=== PATIENT | female | born 1950 | race Caucasian/White ===

== ENCOUNTER → 2017-08-29 09:17 | Outpatient (CLI) | payer MEDICARE, BC, SELFPAY | PROVIDERS: PCP Nurse Practitioner Family; Visit Provider Internal Medicine Endocrinology, Diabetes & Metabolism | DX: E27.8 Other specified disorders of adrenal gland (principal) | CPT/HCPCS: 36415; 82533 ==

== ENCOUNTER → 2019-09-27 13:37 | Outpatient (CLI) | payer MEDICARE, BC, SELFPAY ==
[2019-09-27 14:58] LABS: Basophils % 0.2 % (0.1-2.0); Eosinophils % 0.2 % (0.1-12.0); Hematocrit 34.2 % (37.0-47.0); Hemoglobin 11.9 g/dL (12.2-16.2); Lymphocytes # 0.8 K/mm3 (0.7-4.5); Mean Corpuscular Hemoglobin 28.8 pg (27.0-31.2); Mean Corpuscular Volume 82.4 fl (81-99); Mean Platelet Volume 8.6 fl (7.4-10.4); Monocytes # 0.4 K/mm3 (0.1-1.0); Monocytes % 5.9 % (1.7-9.3); Neutrophils # 5.8 K/mm3 (1.8-7.8); Neutrophils % 82.7 % (37.0-80.0); Platelet Count 235 K/mm3 (142-424); Red Blood Count 4.15 M/mm3 (4.20-5.40); Red Cell Distribution Width 13.6 % (11.5-17.5)
[2019-09-27 16:05] LABS: Chloride 95 mmol/L (98-107)
[2019-09-27 16:06] LABS: Sodium 132 mmol/L (136-145)
[2019-09-27 16:08] LABS: Alanine Aminotransferase 46 U/L (12-78); Aspartate Amino Transferase 63 U/L (14-36); Blood Urea Nitrogen 32 mg/dl (7-17); Estimated Glomerular Filt Rate 62 ml/min (>60); GFR (African American) 76 ML/MIN (>60)
[2019-09-27 16:09] LABS: Albumin Level 3.8 g/dl (3.5-5.0); Albumin/Globulin Ratio 1.3 (1.1-1.8); Alkaline Phosphatase 61 U/L (38-126); Anion Gap 15.9 mEq/L (5-15); Bilirubin,Total 0.7 mg/dl (0.2-1.3); Calcium 8.6 mg/dl (8.4-10.2); Carbon Dioxide 24 mmol/L (22.0-30.0); Glucose 147 mg/dl (74-100); Total Protein,Serum 6.8 g/dl (6.3-8.2)
[2019-09-27 16:12] LABS: Potassium 2.9 mmoL/L (3.5-5.1)
== END ==
PROVIDERS: Visit Provider Internal Medicine Adolescent Medicine
DX: J18.0 Bronchopneumonia, unspecified organism (principal); R09.02 Hypoxemia
CPT/HCPCS: 80053; 83735; 85025

== ENCOUNTER → 2021-03-06 19:33 | Outpatient (CLI) | payer MEDICARE, BC, SELFPAY ==
[2021-03-06 20:03] LABS: Basophils # 0.1 K/mm3 (0-0.2); Basophils % 0.8 % (0.1-2.0); Eosinophils # 0.2 K/mm3 (0.0-0.4); Eosinophils % 3.6 % (0.1-12.0); Hematocrit 37.1 % (37.0-47.0); Hemoglobin 12.8 g/dL (12.2-16.2); Lymphocytes # 1.9 K/mm3 (0.7-4.5); Mean Corpuscular HGB Conc 34.3 g/dL (31.8-35.4); Mean Corpuscular Hemoglobin 29.7 pg (27.0-31.2); Mean Corpuscular Volume 86.5 fl (81-99); Mean Platelet Volume 9.8 fl (7.4-10.4); Monocytes # 0.4 K/mm3 (0.1-1.0); Monocytes % 6.7 % (1.7-9.3); Neutrophils # 3.8 K/mm3 (1.8-7.8); Neutrophils % 58.9 % (37.0-80.0); Platelet Count 274 K/mm3 (142-424); Red Cell Distribution Width 13.8 % (11.5-17.5); White Blood Count 6.4 K/mm3 (4.8-10.8)
[2021-03-06 20:35] LABS: Alanine Aminotransferase 34 U/L (12-78); Albumin Level 4.5 g/dl (3.5-5.0); Albumin/Globulin Ratio 1.7 (1.1-1.8); Alkaline Phosphatase 90 U/L (38-126); Anion Gap 14.2 mEq/L (5-15); Aspartate Amino Transferase 33 U/L (14-36); Bilirubin,Total 0.3 mg/dl (0.2-1.3); Blood Urea Nitrogen 17 mg/dl (7-17); Calcium 9.9 mg/dl (8.4-10.2); Carbon Dioxide 27 mmol/L (22.0-30.0); Chloride 100 mmol/L (98-107); Chol/HDL Ratio 4.2 (1-3.5); Cholesterol 206 mg/dl (140-200); Estimated Glomerular Filt Rate 83 ml/min (>60); GFR (African American) 101 ML/MIN (>60); Globulin 2.7 g/dL (1.3-3.2); Glucose 149 mg/dl (74-100); HDL Cholesterol 49 mg/dl (40-60); Potassium 4.2 mmoL/L (3.5-5.1); Sodium 137 mmol/L (136-145); Total Protein,Serum 7.2 g/dl (6.3-8.2); Triglycerides 199 mg/dl (30-150); VLDL Cholesterol 40 mg/dL (0-40)
[2021-03-06 20:46] LABS: Direct LDL Cholesterol 114.17 mg/dL (100-129)
[2021-03-06 20:52] LABS: 25-OH Vitamin D, Total 36.5 ng/mL (30-100)
[2021-03-06 21:49] LABS: Hemoglobin A1C 6.6 % (4.0-6.0)
== END ==
PROVIDERS: Visit Provider Internal Medicine Adolescent Medicine
DX: Z00.00 Encounter for general adult medical examination without abnormal findings (principal); U07.1 COVID-19; E55.9 Vitamin D deficiency, unspecified; Z79.899 Other long term (current) drug therapy; E27.8 Other specified disorders of adrenal gland
CPT/HCPCS: 80053; 80061; 82306; 83036; 85025

== ENCOUNTER → 2021-07-05 10:15 | Outpatient (CLI) | payer MEDICARE, BC, SELFPAY ==
[2021-07-05 14:30] LABS: Alanine Aminotransferase 41 U/L (12-78); Albumin Level 4.3 g/dl (3.5-5.0); Albumin/Globulin Ratio 1.6 (1.1-1.8); Alkaline Phosphatase 83 U/L (38-126); Anion Gap 15.2 mEq/L (5-15); Aspartate Amino Transferase 36 U/L (14-36); Bilirubin,Total 0.6 mg/dl (0.2-1.3); Blood Urea Nitrogen 21 mg/dl (7-17); Calcium 9.2 mg/dl (8.4-10.2); Carbon Dioxide 25 mmol/L (22.0-30.0); Chloride 101 mmol/L (98-107); Estimated Glomerular Filt Rate 99 ml/min (>60); GFR (African American) 120 ML/MIN (>60); Globulin 2.7 g/dL (1.3-3.2); Glucose 179 mg/dl (74-100); Potassium 4.2 mmoL/L (3.5-5.1); Sodium 137 mmol/L (136-145)
[2021-07-07 08:15] LABS: Testosterone,Total 22 ng/dL (3-67)
== END ==
PROVIDERS: Visit Provider Internal Medicine Adolescent Medicine
DX: L68.0 Hirsutism (principal)
CPT/HCPCS: 36415; 80053; 82533; 84403

== ENCOUNTER → 2021-10-25 06:57 | Outpatient (CLI) | payer MEDICARE, BC, SELFPAY ==
[2021-10-25 17:21] LABS: Basophils # 0.1 K/mm3 (0-0.2); Basophils % 1.2 % (0.1-2.0); Eosinophils # 0.2 K/mm3 (0.0-0.4); Eosinophils % 3.7 % (0.1-12.0); Hematocrit 37.7 % (37.0-47.0); Hemoglobin 12.2 g/dL (12.2-16.2); Lymphocytes # 1.7 K/mm3 (0.7-4.5); Lymphocytes % 27.1 % (10-50); Mean Corpuscular HGB Conc 32.5 g/dL (31.8-35.4); Mean Corpuscular Hemoglobin 29.4 pg (27.0-31.2); Mean Corpuscular Volume 90.4 fl (81-99); Monocytes # 0.4 K/mm3 (0.1-1.0); Monocytes % 5.9 % (1.7-9.3); Neutrophils # 3.9 K/mm3 (1.8-7.8); Neutrophils % 62.1 % (37.0-80.0); Platelet Count 256 K/mm3 (142-424); Red Blood Count 4.17 M/mm3 (4.20-5.40); Red Cell Distribution Width 14.1 % (11.5-17.5); White Blood Count 6.3 K/mm3 (4.8-10.8)
[2021-10-25 17:29] LABS: Alanine Aminotransferase 37 U/L (12-78); Albumin Level 4.1 g/dl (3.5-5.0); Albumin/Globulin Ratio 1.6 (1.1-1.8); Alkaline Phosphatase 87 U/L (38-126); Anion Gap 13.9 mEq/L (5-15); Aspartate Amino Transferase 34 U/L (14-36); Blood Urea Nitrogen 18 mg/dl (7-17); Calcium 9.9 mg/dl (8.4-10.2); Carbon Dioxide 25 mmol/L (22.0-30.0); Chloride 102 mmol/L (98-107); Chol/HDL Ratio 4.6 (1-3.5); Cholesterol 188 mg/dl (140-200); Estimated Glomerular Filt Rate 99 ml/min (>60); GFR (African American) 120 ML/MIN (>60); Globulin 2.6 g/dL (1.3-3.2); Glucose 210 mg/dl (74-100); HDL Cholesterol 41 mg/dl (40-60); Potassium 3.9 mmoL/L (3.5-5.1); Sodium 137 mmol/L (136-145); Total Protein,Serum 6.7 g/dl (6.3-8.2); Triglycerides 237 mg/dl (30-150); VLDL Cholesterol 47 mg/dL (0-40)
[2021-10-25 17:44] LABS: Bilirubin,Total 0.1 mg/dl (0.2-1.3)
[2021-10-27 08:35] LABS: Direct LDL Cholesterol 99 mg/dL (100-129)
== END ==
PROVIDERS: PCP Internal Medicine Adolescent Medicine; Visit Provider Internal Medicine Adolescent Medicine
DX: E78.5 Hyperlipidemia, unspecified (principal); E11.9 Type 2 diabetes mellitus without complications
CPT/HCPCS: 80053; 80061; 83036; 85025

== ENCOUNTER → 2022-11-20 23:21 | Outpatient (CLI) | payer MEDICARE, BC, SELFPAY ==
[2022-11-20 17:41] LABS: Hemoglobin A1C 7.4 % (4.0-6.0)
[2022-11-20 23:18] LABS: Creatinine,Urine Random 88 mg/dL (Not Estab.)
== END ==
PROVIDERS: PCP Family Medicine; Visit Provider Family Medicine
DX: E11.9 Type 2 diabetes mellitus without complications (principal); Z79.84 Long term (current) use of oral hypoglycemic drugs
CPT/HCPCS: 82043; 82570; 83036

== ENCOUNTER → 2022-12-12 14:20 | Outpatient (POV) | payer MEDICARE, BC, SELFPAY | PROVIDERS: Visit Provider Specialist/Technologist | DX: Z00.00 Encounter for general adult medical examination without abnormal findings (principal) ==

== ENCOUNTER 2023-07-24 09:49 | Outpatient (CLI) | payer MEDICARE, BC, SELFPAY ==
--- NOTE | 2023-07-24 09:49 | US_ITS ---
FINAL REPORT TECHNIQUE: Ultrasound images of the kidneys and bladder were obtained. CLINICAL HISTORY: ADRENAL ABNORMALITY -- ABN CT FINDINGS: The right kidney measures 12.3 cm in length. It is normal in echogenicity. There is no hydronephrosis. The left kidney measures 10.5 cm in length. It is normal in echogenicity. There is no hydronephrosis. The urinary bladder is unremarkable. There is fatty infiltration of the liver. IMPRESSION: No hydronephrosis. Reviewed, Interpreted and Dictated by Patricia Bonilla MD Transcribed by Kelly Benitez Authenticated and . [facility]
[2023-07-24 11:14] LABS: Basophils # 0.1 K/mm3 (0-0.2); Basophils % 1.1 % (0.1-2.0); Eosinophils # 0.3 K/mm3 (0.0-0.4); Eosinophils % 3.3 % (0.1-12.0); Hematocrit 38.7 % (37.0-47.0); Hemoglobin 13.1 g/dL (12.2-16.2); Lymphocytes # 2.4 K/mm3 (0.7-4.5); Lymphocytes % 31.3 % (10-50); Mean Corpuscular HGB Conc 33.8 g/dL (31.8-35.4); Mean Corpuscular Hemoglobin 30.1 pg (27.0-31.2); Mean Corpuscular Volume 88.8 fl (81-99); Mean Platelet Volume 8.7 fl (7.4-10.4); Monocytes # 0.4 K/mm3 (0.1-1.0); Monocytes % 5.7 % (1.7-9.3); Neutrophils # 4.4 K/mm3 (1.8-7.8); Neutrophils % 58.5 % (37.0-80.0); Platelet Count 273 K/mm3 (142-424); Red Blood Count 4.36 M/mm3 (4.20-5.40); Red Cell Distribution Width 14.1 % (11.5-17.5); White Blood Count 7.5 K/mm3 (4.8-10.8)
[2023-07-24 11:35] LABS: Alanine Aminotransferase 44 U/L (12-78); Albumin Level 4.7 g/dl (3.5-5.0); Albumin/Globulin Ratio 1.7 (1.1-1.8); Alkaline Phosphatase 66 U/L (38-126); Anion Gap 15.6 mEq/L (5-15); Aspartate Amino Transferase 42 U/L (14-36); Bilirubin,Total 0.6 mg/dl (0.2-1.3); Blood Urea Nitrogen 20 mg/dl (7-17); Calcium 10.3 mg/dl (8.4-10.2); Carbon Dioxide 26 mmol/L (22.0-30.0); Chloride 101 mmol/L (98-107); Chol/HDL Ratio 4.1 (1-3.5); Cholesterol 231 mg/dl (140-200); Estimated Glomerular Filt Rate 82 ml/min (>60); GFR (African American) 100 ML/MIN (>60); Globulin 2.8 g/dL (1.3-3.2); Glucose 152 mg/dl (74-100); HDL Cholesterol 57 mg/dl (40-60); Potassium 4.6 mmoL/L (3.5-5.1); Sodium 138 mmol/L (136-145); Total Protein,Serum 7.5 g/dl (6.3-8.2); Triglycerides 274 mg/dl (30-150); VLDL Cholesterol 55 mg/dL (0-40)
[2023-07-24 11:46] LABS: Direct LDL Cholesterol 122.81 mg/dL (100-129)
[2023-08-04 21:08] LABS: 1,25 Dihydroxy Vitamin D 38 pg/mL (.); 1,25-Dihydroxy, Vitamin D-2 29 pg/mL (.); 1,25-Dihydroxy, Vitamin D-3 <10 pg/mL (.)
== END 2023-07-24 23:59 | disposition home or self-care (01) ==
LOC: RAD 09:49
PROVIDERS: PCP Family Medicine; Visit Provider Family Medicine
DX: E27.9 Disorder of adrenal gland, unspecified (principal); E11.9 Type 2 diabetes mellitus without complications; E55.9 Vitamin D deficiency, unspecified; G57.93 Unspecified mononeuropathy of bilateral lower limbs; E78.5 Hyperlipidemia, unspecified; Z79.84 Long term (current) use of oral hypoglycemic drugs
CPT/HCPCS: 36415; 76770; 80053; 80061; 82533; 82652; 83036; 85025

== ENCOUNTER 2023-08-09 03:38 | Emergency (ER) | payer MEDICARE, BC, SELFPAY ==
[2023-08-09 03:52] VITALS: BP 208/86; PULSE 96; RESP 18; TEMP 36.7; O2SAT 98; BMI 42.5
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
--- NOTE | 2023-08-09 04:12 | HMH.EDGENADL ---
Discharge Plan Disposition Patient Disposition: Home, Self-Care Prescriptions Prescriptions: No Action vitamin E succinate 134 mg (200 unit) tablet 134 mg PO .QOD colestipol 1 gram tablet 1 g PO BID Qty: 60 3RF aspirin [Adult Low Dose Aspirin] 81 mg tablet,delayed release (DR/EC) 81 mg PO DAILY 90 Days Qty: 90 0RF ergocalciferol (vitamin D2) 1,250 mcg (50,000 unit) capsule 1,250 mcg PO WEEKLY 90 Days Qty: 13 3RF magnesium 250 mg tablet 250 mg PO DAILY 90 Days Qty: 90 0RF lisinopril-hydrochlorothiazide 20-12.5 mg tablet 1 tab PO BID 90 Days Qty: 180 0RF fluticasone propionate [Flonase Allergy Relief] 50 mcg/actuation spray,suspension 2 spray INTRANASAL DAILY PRN (Reason: nasal congestion) Qty: 16 3RF Rx Instructions: administer into each nostril metoprolol succinate [Toprol XL] 50 mg tablet extended release 24 hr 50 mg PO BID 90 Days Qty: 180 0RF metformin 500 mg tablet extended release 24 hr 1,000 mg PO BID 90 Days Qty: 270 0RF Rx Instructions: (1) tablet in the AM (2) tablets QHS Referrals Follow up/Referrals: Uriel Thornton MD [Primary Care Provider] - See instructions Activity Restrictions/Add. Instructions Additional Instructions/Restrictions: Please follow-up with your primary care provider. Please return to the emergency department if you develop any new or worsening symptoms or become concerned for your health. Clinical Impressions Clinical Impression: Blunt trauma of nose Laceration of face Qualifiers: Encounter type: initial encounter Qualified Code(s): S01.81XA - Laceration without foreign body of other part of head, initial encounter Discharge ED Provider: [address] General Adult HPI General Chief complaint: Fall Stated complaint: fall,laceration forehead,L knee pain,nose pain Time Seen by Provider: 08/09/23 03:45 Mode of Arrival: Ambulatory Source of Information: Patient Limitations: No Limitations Description of Symptoms (Recalled from ER Triage Doc. by RN): pt ambulatory to ed w c/o fall around 0200. pt reports she was going to bed and tripped on rug in kitchen. pt states she fell on her left knee and hit her face on the tile floor. laceration noted to forehead. pt reports her nose was bleeding before arrival to ed. pt not on blood thinners. History of Present Illness HPI narrative: 73-year-old female, takes aspirin daily, presents for mechanical fall from standing. She fell forward, striking her head and her left knee on her hard stone floor in her home. She denies loss of consciousness. She reports her nose was bleeding prior to arrival. Related Data Home Medications Medication Instructions Recorded Confirmed vitamin E succinate 134 mg (200 134 mg PO .QOD 11/20/22 07/14/23 unit) tablet Previous Rx's Medication Instructions Recorded aspirin 81 mg tablet,delayed 81 mg PO DAILY 90 days #90 tabs 01/09/23 release (Adult Low Dose Aspirin) ergocalciferol (vitamin D2) 1,250 1,250 mcg PO WEEKLY 90 days #13 01/09/23 mcg (50,000 unit) capsule caps magnesium 250 mg tablet 250 mg PO DAILY 90 days #90 tabs 01/09/23 fluticasone propionate 50 2 spray intranasal DAILY PRN nasal 07/03/23 mcg/actuation nasal congestion #16 grams spray,suspension (Flonase Allergy Relief) lisinopril 20 1 tab PO BID 90 days #180 tabs 07/03/23 mg-hydrochlorothiazide 12.5 mg tablet metoprolol succinate 50 mg 50 mg PO BID 90 days #180 tabs 07/03/23 tablet,extended release 24 hr (Toprol XL) colestipol 1 gram tablet 1 g PO BID #60 tabs 07/14/23 metformin 500 mg tablet,extended 1,000 mg (2 x 500 mg) PO BID 90 07/28/23 release 24 hr days #270 tabs Allergies Allergy/AdvReac Type Severity Reaction Status Date / Time amoxicillin Allergy Unknown Verified 07/14/23 11:13 epinephrine Allergy Unknown Verified 07/14/23 11:13 Tetanus Vaccines and Toxoid Allergy Unknown Verified 07/14/23 11:13 [facility] Disclaimer: The information contained in this section may have been updated after the patient was seen, as this information can be updated by other users. Medical History Chronic eustachian tube dysfunction Vertigo Sore throat SNHL (sensorineural hearing loss) Hearing loss Neuropathy of both feet Bile reflux gastritis Vitamin D deficiency DM2 (diabetes mellitus, type 2) Osteoarthritis Surgical History H/O removal of cyst History of hip replacement History of cholecystectomy Family History Father Cancer Sister Cancer Grandmother Cancer Grandfather Cancer Mother Coronary artery disease Diabetes Hypertension Stroke Social History Smoking Status: Never smoker alcohol intake: current alcohol intake frequency: holidays/special occasions only (beer) substance use type: denies use current occupational status: retired Travel in the last 8 weeks: None household members: spouse housing: house ROS Obtained: Yes All systems reviewed & no additional complaints except as documented Physical Exam General General appearance: alert and in no apparent distress Head Head exam: normocephalic and other (L-shaped laceration to the left forehead above the eyebrow. Nose is tender but not obviously deformed) Eye Eye exam: Present normal appearance, PERRL and EOMI ENT ENT exam: Present normal oropharynx, normal external ear exam and other (No nasal septal hematoma.) Neck Neck exam: Present normal inspection and full ROM; Absent tenderness Chest Chest inspection: Present normal inspection and symmetric chest wall rise; Absent tenderness Respiratory Respiratory exam: Present normal lung sounds bilaterally; Absent respiratory distress Cardiovascular Cardiovascular exam: Present regular rate and normal rhythm Abdominal Exam Abdominal exam: Present soft; Absent distention, tenderness or guarding Extremities Exam Extremities exam: Present normal inspection and other (Mild tenderness to the left knee); Absent edema or joint swelling Back Exam Back exam: Present normal inspection; Absent tenderness Neurological Exam Neurological exam: Present alert and oriented X3; Absent motor sensory deficit Psychiatric Psychiatric exam: Present normal affect and normal mood Skin Skin exam: Present warm, dry and normal color Lymphatic Lymphatic Findings: no adenopathy Medical Decision Making Medical Records Medical records reviewed: Yes I reviewed the patient's medical records. [place] Inquiry Pt receiving controlled substance: No [place] was queried for this patient: No Vital Signs: 08/09/23 03:52 Temperature 98.1 F Temperature Source Oral Pulse Rate [Left Radial] 96 H Respiratory Rate 18 Blood Pressure [Right Arm] 208/86 H Blood Pressure Mean [Right Arm] 126 Blood Pressure Source [Right Arm] Automatic Cuff Blood Pressure Position [Right Arm] Sitting 02 Sat by Pulse Oximetry 98 Oxygen Delivery Method Room Air Lab Data Lab results reviewed: Yes I reviewed the patient's lab results. Orders (Tests/Meds): ORDERS Category Date Time Status CT cervical spine wo con Stat Cat Scan 08/09/23 03:[address] head/brain wo con Stat Cat Scan 08/09/23 03:59 Completed Knee XR left 3 views [XR knee LT 3V] Stat Exams 08/09/23 03:59 Taken Medical Decision Narrative: 33-year-old female on daily aspirin presents after mechanical fall from standing, striking her head.. History was obtained interactive discussion with patient. On arrival, patient is [afebrile, hemodynamically stable, satting appropriately, alert, oriented x4, GCS 15], moving all extremities spontaneously. Full physical exam performed and significant for left knee tenderness, small laceration of the left forehead, nasal tenderness Differential includes but is not limited to intracranial trauma thoracic trauma intra-abdominal trauma spine trauma extremity trauma. Workup initiated including CT head, CT C-spine, radiographs of the left knee. On re-evaluation, patient [remains afebrile, HD stable.] Imaging independently interpreted by me and significant for no evidence of intracranial bleeding or nasal bone fracture, no cervical fracture, chronic degenerative changes of the knee without acute fracture or dislocation.. See radiology read for full review of final results. Full trauma scans were considered but deemed unnecessary given history and exam . Given patient history, exam and workup, patient's presentation most likely represents mechanical fall and facial laceration with bruising to the nose. Laceration was copiously irrigated and repaired at bedside by me. Patient reports that she is unable to take a tetanus shot because she had an anaphylactic reaction as a child. No indication for antibiotics at this time. Patient discharged in stable condition return precautions given. Procedures Risk/Benefits of Procedure(s) Were Explained: Yes Laceration Laceration 1: Site: face (Left forehead) Side (If applicable): left Size (cm): 2 Description: linear (L-shaped) Depth: simple, single layer Local Anesthetic: lidocaine 1% Amount of anesthesia used (mL): 4 Pre-repair: wound explored, irrigated extensively and deep structures intact Skin layer closed with: other (Fast gut) Size (cm): 5-0 Number of sutures: 2 Technique: simple, interrupted Critical Care Critical Care Time Critical Care Time: No
[2023-08-09 05:40] VITALS: BP 187/70; PULSE 83; RESP 17; TEMP 36.8; O2SAT 95
== END 2023-08-09 05:41 | disposition home or self-care (01) ==
PROVIDERS: Emergency Provider Emergency Medicine; PCP Family Medicine
DX: S01.81XA Laceration without foreign body of other part of head, initial encounter (principal); M25.562 Pain in left knee; W19.XXXA Unspecified fall, initial encounter
CPT/HCPCS: 12011; 70450; 72125; 73562; 99285

== ENCOUNTER 2024-02-23 11:45 | Outpatient (CLI) | payer MEDICARE, BC, SELFPAY ==
[2024-02-23 16:28] LABS: Basophils # 0.1 K/mm3 (0-0.2); Eosinophils # 0.3 K/mm3 (0.0-0.4); Eosinophils % 3.7 % (0.1-12.0); Hematocrit 40.2 % (37.0-47.0); Hemoglobin 13.7 g/dL (12.2-16.2); Lymphocytes # 1.9 K/mm3 (0.7-4.5); Lymphocytes % 28.8 % (10-50); Mean Corpuscular HGB Conc 34.1 g/dL (31.8-35.4); Mean Platelet Volume 9.3 fl (7.4-10.4); Monocytes # 0.4 K/mm3 (0.1-1.0); Monocytes % 6.6 % (1.7-9.3); Neutrophils % 59.9 % (37.0-80.0); Platelet Count 261 K/mm3 (142-424); Red Blood Count 4.56 M/mm3 (4.20-5.40); Red Cell Distribution Width 13.9 % (11.5-17.5); White Blood Count 6.7 K/mm3 (4.8-10.8)
[2024-02-23 17:03] LABS: Alanine Aminotransferase 40 U/L (12-78); Albumin Level 4.6 g/dl (3.5-5.0); Albumin/Globulin Ratio 1.6 (1.1-1.8); Alkaline Phosphatase 55 U/L (38-126); Anion Gap 19.3 mEq/L (5-15); Aspartate Amino Transferase 37 U/L (14-36); Bilirubin,Total 0.6 mg/dl (0.2-1.3); Blood Urea Nitrogen 16 mg/dl (7-17); Calcium 10.1 mg/dl (8.4-10.2); Carbon Dioxide 23 mmol/L (22.0-30.0); Chloride 99 mmol/L (98-107); Chol/HDL Ratio 4.3 (1-3.5); Cholesterol 191 mg/dl (140-200); Estimated Glomerular Filt Rate 99 ml/min (>60); GFR (African American) 119 ML/MIN (>60); Globulin 2.9 g/dL (1.3-3.2); Glucose 124 mg/dl (74-100); HDL Cholesterol 44 mg/dl (40-60); Potassium 4.3 mmoL/L (3.5-5.1); Sodium 137 mmol/L (136-145); Total Protein,Serum 7.5 g/dl (6.3-8.2); Triglycerides 274 mg/dl (30-150); VLDL Cholesterol 55 mg/dL (0-40)
[2024-02-23 17:05] LABS: Hemoglobin A1C 6.2 % (4.0-6.0)
[2024-02-23 17:13] LABS: Direct LDL Cholesterol 104.14 mg/dL (100-129)
[2024-02-23 19:31] LABS: HIV (1&2) Antibody Rapid NONREACTIVE (NONREACTIVE)
[2024-02-24 05:11] LABS: HCV Ab Non Reactive (Non Reactive)
== END 2024-02-23 23:59 | disposition home or self-care (01) ==
LOC: LAB.DROPOF 02-24 13:49
PROVIDERS: PCP Family Medicine; Visit Provider Family Medicine
DX: Z11.59 Encounter for screening for other viral diseases (principal); E11.9 Type 2 diabetes mellitus without complications; Z79.84 Long term (current) use of oral hypoglycemic drugs
CPT/HCPCS: 80053; 80061; 83036; 85025; 86803; 87389

== ENCOUNTER 2024-07-05 12:20 | Outpatient (CLI) | payer MEDICARE, BC, SELFPAY ==
--- NOTE | 2024-07-05 12:28 | XR_ITS ---
FINAL REPORT CLINICAL HISTORY: Right Foot Pain COMPARISON: None FINDINGS: RIGHT FOOT Three views demonstrate no acute fracture or dislocation. The joint spaces appear normal. There is mild soft tissue swelling over the dorsum of the foot. There is a small plantar spur. IMPRESSION: Soft tissue swelling without acute bony abnormality. Reviewed, Interpreted and Dictated by Will Sullivan MD Transcribed by Jaky Sarmiento Authenticated and [facility]
--- NOTE | 2024-07-05 12:28 | XR_ITS ---
FINAL REPORT CLINICAL HISTORY: Left Foot Pain COMPARISON: None FINDINGS: LEFT FOOT Three views demonstrate no acute fracture or dislocation. The joint spaces appear normal. There is mild soft tissue swelling over the dorsum of the foot. There is a small plantar spur. IMPRESSION: Soft tissue swelling without acute bony abnormality. Reviewed, Interpreted and Dictated by Will Sullivan MD Transcribed by Jaky Sarmiento Authenticated and [facility]
== END 2024-07-05 23:59 | disposition home or self-care (01) ==
LOC: RAD 12:22
PROVIDERS: PCP Family Medicine; Visit Provider Nurse Practitioner
DX: M79.671 Pain in right foot (principal); M79.672 Pain in left foot
CPT/HCPCS: 73630